=== PATIENT | female | born 2000 | race Caucasian/White ===

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

== ENCOUNTER 2022-09-30 17:58 | Outpatient (CLI) | payer SELFPAY ==
[~2022-09-30] VITALS: Ht 160 cm; Wt 67.7 kg
[~2022-09-30 17:58] MED LIST: ACHD5005 PO; DOXY100T2 PO
[2022-09-30 18:38] VITALS: BP 119/70
[2022-09-30 19:29] LABS: BILIRUBIN,URINE NEGATIVE (NEGATIVE); CLARITY,URINE CLEAR; COLOR,URINE YELLOW; GLUCOSE, URINE (UA) NEGATIVE (NEGATIVE); KETONES,URINE NEGATIVE (NEGATIVE); LEUKOCYTE ESTERASE ,URINE 1+ (NEGATIVE); NITRITE,URINE NEGATIVE (NEGATIVE); PROTEIN,URINE NEGATIVE (NEGATIVE)
[2022-09-30 19:42] LABS: BACTERIA,URINE TRACE /HPF; RBC,URINE RARE /HPF
[2022-09-30] MEDS ORDERED: hydrOXYzine (VISTARIL/ATARAX) 25 MG capsule/tablet ONE (20:14)
[2022-09-30] MEDS ORDERED: hydrOXYzine (VISTARIL/ATARAX) 25 MG capsule/tablet PO ONE (20:15)
--- NOTE | 2022-10-03 08:45 | Physician Query-Final Dx ---
Clinic Account Progress/Dx Physician Query: Please give diagnosis Please include # weeks gestation Date of Service Sep 30, 2022 at 17:58 DALIAAugOct 03, 2022 08:45
== END 2022-09-30 21:14 ==
LOC: LDRP 17:58 → WSo 17:58
PROVIDERS: ATTEND Family Medicine
DX: O62.9 Abnormality of forces of labor, unspecified (principal); Z3A.00 Weeks of gestation of pregnancy not specified
CPT/HCPCS: 81000; G0463; 99213

== ENCOUNTER 2022-11-09 20:34 | Outpatient (CLI) | payer SELFPAY ==
[~2022-11-09] VITALS: Ht 160 cm; Wt 72.7 kg
[2022-11-09 20:50] VITALS: BP 125/78
[2022-11-09 21:26] LABS: BILIRUBIN,URINE NEGATIVE (NEGATIVE); CLARITY,URINE SL CLOUDY; COLOR,URINE YELLOW; GLUCOSE, URINE (UA) NEGATIVE (NEGATIVE); KETONES,URINE NEGATIVE (NEGATIVE); LEUKOCYTE ESTERASE ,URINE 2+ (NEGATIVE); NITRITE,URINE NEGATIVE (NEGATIVE); PROTEIN,URINE NEGATIVE (NEGATIVE)
[2022-11-09 21:35] LABS: BACTERIA,URINE FEW /HPF
[2022-11-09 21:37] VITALS: BP 115/70
--- NOTE | 2022-11-10 08:25 | Physician Query-Final Dx ---
DALIA,11/10/22 0825: Clinic Account Progress/Dx Physician Query: Please give diagnosis Please include # weeks gestation Date of Service Nov 09, 2022 at 20:34 OLIVER DAS MD 11/12/22 0855: Clinic Account Progress/Dx DIAGNOSIS: Diagnosis Abdominal pain complicating 38 weeks gestation ,AugNov 10, 2022 08:25 OLIVER DAS MD Nov 12, 2022 08:55
== END 2022-11-09 22:40 | disposition home or self-care (01) ==
LOC: WSo 20:34 → LDRP 20:35 → WSo 22:40
PROVIDERS: ATTEND Family Medicine
DX: O62.9 Abnormality of forces of labor, unspecified (principal); Z3A.00 Weeks of gestation of pregnancy not specified
CPT/HCPCS: 81000; 87088; G0463; 99213